=== PATIENT | male | born 1995 | race Caucasian/White ===

== ENCOUNTER → 2020-03-20 | Outpatient (CLI) | payer OTHER ==
--- NOTE | 2020-03-20 15:11 | RADIOLOGY REPORT (SQ) ---
EXAM DESCRIPTION: CT SOFT TISSUE NECK WITH IMAGES COMPLETED DATE/TIME: 03/20/2020 12:43 pm REASON FOR STUDY: R59.0 LOCALIZED ENLARGED LYMPH NODES R59.0 LOCALIZED ENLARGED LYMPH NODES COMPARISON: None. TECHNIQUE: Post IV contrasted scanning from skull base through lung apices with review of bone, soft tissue and lung windows. Reconstructed coronal and sagittal MPR images reviewed. All images stored on PACS. All CT scanners at this facility use dose modulation, iterative reconstruction, and/or weight based d osing when appropriate to reduce radiation dose to as low as reasonably achievable (ALARA). [facility]: Dose Right [facility]: CareDose [facility]: Dose Right [facility]: Teradose 4D [facility]: [employer] CONTRAST TYPE AND DOSE: contrast/concentration: Isovue 350.00 mmol/ml; Total Contrast Delivered: 75. 0 ml; Total Saline Delivered: 40.0 ml RENAL FUNCTION: None required. The patient is less than 50 years old. RADIATION DOSE: . LIMITATIONS: None. FINDINGS: SKULL BASE: Intact. MAJOR SALIVARY GLANDS: No solid or cystic masses. No inflammatory changes. LYMPHADENOPATHY: There is no cervical lymphadenopathy. The radiopaque marker corresponds to a tiny l ymph node in the left neck measuring 0.8 x 0.4 cm. This has normal architecture and appearance. MUCOSAL MASSES OR ASYMMETRY: No mucosal masses or asymmetry. LARYNX/CORDS: No abnormal findings. VASCULAR STRUCTURES: The major vessels are patent. LUNG APICES: Tiny scattered ground-glass nodules at the lung apices, probably respiratory bronchiolit is/ interstitial lung disease. No focal consolidation or pleural effusion. No discrete measurable n odule. BONES: Intact. THYROID: Normal size. No masses. PARANASAL SINUSES: Clear. OTHER: No other significant finding. IMPRESSION: 1. The palpable area of concern corresponds to a benign normal size lymph node. There is no cervical adenopathy. 2. Scattered tiny ground-glass nodules at the lung apices, consistent with respiratory bronchiolitis/ interstitial lung disease, which is seen almost exclusively in smokers. Clinical correlation. TECHNICAL DOCUMENTATION: JOB ID: [id number] Quality ID # [id number]: Final reports with documentation of one or more dose reduction techniques (e.g., Au tomated exposure control, adjustment of the mA and/or kV according to patient size, use of iterative reconstruction technique) 2010 [employer]- All Rights Reserved Reading location - IP/workstation name: [email or web address]
== END ==
LOC: RAD 13:08
PROVIDERS: ATTEND Otolaryngology
DX: R59.0 Localized enlarged lymph nodes (principal); R91.8 Other nonspecific abnormal finding of lung field
CPT/HCPCS: 70491